=== PATIENT | female | born 1980 ===

== ENCOUNTER 2022-01-14 09:28 | Outpatient (CLI) | payer OTHER | END 2022-01-14 10:45 | disposition home or self-care (01) | LOC: PRENATAL 09:28 | PROVIDERS: ATTEND Obstetrics & Gynecology Maternal & Fetal Medicine | DX: O35.0XX0 Maternal care for (suspected) central nervous system malformation in fetus, not applicable or unspecified (principal); O35.3XX0 Maternal care for (suspected) damage to fetus from viral disease in mother, not applicable or unspecified; O09.522 Supervision of elderly multigravida, second trimester; O28.5 Abnormal chromosomal and genetic finding on antenatal screening of mother; Z3A.20 20 weeks gestation of pregnancy ==